=== PATIENT | female | born 2000 | race Caucasian/White ===

== ENCOUNTER 2024-10-15 17:28 | Emergency (ER) | payer MEDICAID, SELFPAY ==
[2024-10-15 17:30] VITALS: BP 123/80; PULSE 90; RESP 16; TEMP 37.1; O2SAT 98; BMI 37.1
--- NOTE | 2024-10-15 17:39 | EX.ED.GENINJ ---
HPI History of Present Illness Chief Complaint: Nausea/Vomiting/Diarrhea PFSH PFSH Medical History no medical history Home Medications ?Medication ?Instructions ?Recorded ?Last Taken ?Type NK 10/15/24 Unknown History Allergy/AdvReac Type Severity Reaction Status Date / Time lamotrigine (From Lamictal) AdvReac Severe ST Verified 10/15/24 17:29 JOHNSONS DISEASE Family History no significant family his Surgical History (Updated 10/15/24 @ 17:37 by Lisa Weems) Previous section Surgical History no surgical history Social History Smoking Status: Current some day smoker tobacco type: pipe and e-cigarettes EXAM Physical Exam Const Vital Signs: 10/15/24 17:30 10/15/24 19:29 Temperature 98.7 F Temperature Source Oral Pulse Rate 90 86 Respiratory Rate 16 17 Blood Pressure 123/80 H Blood Pressure Mean 94 Pulse Ox 98 98 Oxygen Delivery Method Room Air Room Air MDM MDM MDM Narrative Medical decision making narrative: HISTORY OF PRESENT ILLNESS: Chief complaint: Nausea vomiting diarrhea 24-year-old female been seen 3 times in multiple hospitals for nausea vomiting diarrhea. Notes 3 weeks of symptoms. Has a PCP appointment tomorrow. She states at her prior ED visits she has received labs and ultrasound which were negative states she has a normal nausea medicine as well as her provide for approximate 2030 minutes and then she becomes nauseous again. Denies travel or sick contacts denies hematemesis melena or hematochezia. Last bowel movement was today. Notes 2 loose stools. No watery stools. Notes 2 episodes of vomiting prior to arrival. Last period was approximately 4 weeks ago. No vaginal bleeding or discharge. Notes history of a . REVIEW OF SYSTEMS: Pertinent positives: Nausea and vomiting Pertinent negatives: Fever, chest pain, shortness of breath, urinary complaints PHYSICAL EXAM: Nursing triage notes reviewed, Vital signs reviewed Constitutional: please see mdm HENT: MMM Eyes: Pupils equal round and reactive to light, Extraocular muscles intact Neck: No stridor, no JVD, full neck ROM Lungs: Clear to auscultation, No wheezing or rales. No increased work of breathing, no conversational dyspnea, no accessory muscle use, no nasal flaring. No respiratory distress noted Heart: Regular rate and rhythm, No murmurs, No rubs and No gallops, 2+ distal pulses (radial, femoral, posterior tibial) in all extremities Abdomen: Soft, there is no tenderness, rigidity, rebound or guarding, no obvious peritoneal signs, no palpable pulsatile abdominal masses, no auscultated abdominal bruit : No CVAT Extremities: No edema Neuro: No new focal neurological deficits, cranial nerves II through XII intact, 5/5 strength in all present extremities. Intact sensation to light touch in all present extremities, 2+ reflexes bilateral patella tendons. Skin: No rash or lesions noted MEDICAL DECISION MAKING: Chief Complaint: please see HPI External records reviewed: No records in [facility]. Factors affecting care: none Social determinants of health: none History obtained from others: none Consults: none [facility] Narrative: The patient was initially hemodynamically stable, afebrile and nontoxic-appearing. Exam benign abdomen. No peritoneal signs noted. Based on the patient's initial abdominal exam she does not require any emergent CT scan at this time I considered the following differential diagnosis: Dehydration, electrolyte disturbance, I obtained a broad lab workup to further determine if the patient was suffering from a life-threatening etiology. I initially resuscitated patient with 1 L normal saline and 1 mg of IV Haldol for initial nausea relief. ALL IMAGES (IF OBTAINED) HAVE BEEN PERSONALLY REVIEWED AND INTERPRETED BY MYSELF. CBC without leukocytosis, no anemia CMP without evidence of acute kidney injury, significant electrolyte abnormality, anion gap to suggest end organ hypo-perfusion, no evidence of metabolic acidosis with a normal bicarbonate, no evidence of hepatobiliary obstructive pathology. Lipase is wnl indicating no pancreatic inflammation. Urinalysis shows no evidence of urinary inflammation suggestive of UTI Urine pricey test is negative Repeat abdominal remain benign. Patient is able tolerate p.o. no clear life-limiting etiology be ascertained during the patient's ED visit will discharge with oral Phenergan and close PCP/GI follow-up. The patient and/or family, caregivers express understanding. The patient and/or family, caregivers agrees with the plan. Shared decision making: I will have a discussion with the patient and or visitors regarding risk/benefits of further testing or admission. They will be made aware of of the risk/benefits inherent in this decision they will be given the opportunity to voice understanding. Total critical care time today provided was at least 0 minutes. This excludes separately billable procedures. Critical care time (if documented) is secondary to the patient having high probability of clinically significant/life threatening deterioration in the patient's condition which required my urgent intervention. Impression: 1. Nausea and vomiting 2. Abdominal pain Dispo: Discharge home This note was generated with [employer] dictation software. It may contain incorrect words, spelling, and punctuation that were not noted in review of the chart prior to signing. Lab Data Labs: Laboratory Results - last 24 hr 10/15/24 10/15/24 18:06 18:20 WBC 7.4 RBC 4.46 Hgb 13.1 Hct 38.0 MCV 85.2 MCH 29.4 MCHC 34.5 RDW Std Deviation 38.0 RDW Coeff of Bakari 12.3 Plt Count 260 MPV 9.3 Immature Gran % (Auto) 0.400 Neut % (Auto) 66.5 Lymph % (Auto) 23.0 [place] % (Auto) 6.1 Eos % (Auto) 3.6 Baso % (Auto) 0.4 Absolute Neuts (auto) 4.9 Absolute Lymphs (auto) 1.71 Nucleated RBC % 0 Sodium 141 Potassium 4.1 Chloride 107 Carbon Dioxide 23.1 Anion Gap 10 BUN 12 Creatinine 0.80 Estim Creat Clear Calc 115.52 Est GFR (MDRD) Non-Af 107 BUN/Creatinine Ratio 15.6 Glucose 150 H Calcium 9.1 Total Bilirubin 0.24 AST 15 ALT 11 Alkaline Phosphatase 81 Total Protein 7.1 Albumin 4.1 Globulin 2.9 Albumin/Globulin Ratio 1.4 Lipase 45 Urine Color Yellow Urine Clarity Cloudy Urine pH 8.0 Ur Specific [place] 1.015 Urine Protein 15 H Urine Glucose (UA) Normal Urine Ketones Negative Urine Occult Blood Negative Urine Nitrite Negative Urine Bilirubin Negative Urine Urobilinogen Normal Ur Leukocyte Esterase 25 H Urine RBC 0 SEEN Urine WBC 0-5 SEEN Ur Squamous Epith Cells 0-5 SEEN Amorphous Sediment 3+ Urine Bacteria 3+ Urine Mucus 0 SEEN Urine Test Negative Discharge Plan Triage Chief Complaint: Nausea/Vomiting/Diarrhea ED Provider: Kai Gar Dx/Rx/DC Orders Prescriptions: No Action NK Primary Care Provider: Rosina Miller NP Referrals: Rosina Miller NP, [facility] [Primary Care Provider] - Print Language: [place]itanian
[2024-10-15] MEDS: 0.9% Normal Saline (1000mL) 1,000 ML 999 ML IV (18:12)
[2024-10-15 18:15] LABS: Hematocrit 38.0 % (37-47); Hemoglobin 13.1 g/dL (12.0-15.0); Immature Granulocytes Count 0.030 X10^3/uL (0.0-0.0); Mean Corp Hgb Conc 34.5 g/dL (32-36); Mean Corpuscular Volume 85.2 fL (81-99); Mean Platelet Vol. 9.3 fl (6.2-12.0); NRBC Flagged by Analyzer 0 % (0-5); Platelet Count 260 K/mm3 (150-450); RBC Distribution Width CV 12.3 % (11.6-14.6); RBC Distribution Width SD 38.0 fl (35.1-43.9); Red Blood Count 4.46 M/mm3 (4.2-5.4); White Blood Count 7.4 K/mm3 (4.4-11.0)
[2024-10-15 18:26] LABS: Color, Urine Yellow (Yellow); Glucose, Dipstick Normal (Normal); Ketone-Dipstick Negative (Negative); Leukocyte Esterase-Dipstick 25 /ul (Negative); Mucous, Urine 0 SEEN /hpf (<or=2+); Nitrite-Dipstick Negative (Negative); Occult Blood-Urine Negative /ul (Negative); Protein-Dipstick 15 mg/dl (Negative); Red Blood Cells-Urine 0 SEEN /hpf (0-5); Specific Gravity, Urine 1.015 (1.002-1.030); Urine Bilirubin Dipstick Negative (Negative)
[2024-10-15 18:31] LABS: Internal QC Validated? YES +Cl - CLEAR BKGD; Pregnancy, Urine Negative Negative; Record Kit Lot#,Urine Preg 947241
[2024-10-15 18:34] LABS: Squamous Epithelial Cells - UA 0-5 SEEN /hpf (5-10)
[2024-10-15 19:04] LABS: AST(SGOT) 15 U/L (<=31); Alanine Aminotransfer ALT/SGPT 11 U/L (<=34); Albumin, Serum 4.1 g/dL (3.5-5.0); Alkaline Phosphatase 81 U/L (35-104); Anion Gap 10 (5-15); BUN 12 mg/dL (4-19); BUN/Creat Ratio 15.6 RATIO (10-20); Calcium,Total 9.1 mg/dL (7.6-11.0); Carbon Dioxide 23.1 mmol/L (21.0-32.0); Chloride 107 mmol/L (98-108); Estimated Creatinine Clearance 115.52 ml/min (50-250); Globulin 2.9 g/dL (2.2-4.2); Glucose 150 mg/dL (70-99); Lipase 45 U/L (13-75); Potassium 4.1 mmol/L (3.3-5.1)
[2024-10-15 19:29] VITALS: PULSE 86; RESP 17; O2SAT 98
[2024-10-15 20:21] VITALS: BP 123/80; PULSE 86; RESP 17; TEMP 37.1; O2SAT 98
== END 2024-10-15 20:34 | disposition home or self-care (01) ==
LOC: ED 18:01
PROVIDERS: Emergency Provider Emergency Medicine; PCP Nurse Practitioner Family; Visit Provider Emergency Medicine
DX: R11.2 Nausea with vomiting, unspecified (principal); R10.9 Unspecified abdominal pain
CPT/HCPCS: 80053; 81001; 81025; 83690; 85025; 96361; 96374; 99283; A4216